=== PATIENT | male | born 1960 | race African-American/Black ===

== ENCOUNTER 2016-12-15 20:47 | Inpatient (IN) | payer MEDICAID ==
[~2016-12-15] VITALS: Ht 182.9 cm; Wt 95.5 kg
[2016-12-15 22:57] LABS: Basophils # (auto) 0 uL; Basophils % (auto) 0.1 % (0.0-2.0); CONDITION Y; Eosinophils # (auto) 0.1 uL; Eosinophils % (auto) 0.9 % (0.0-7.0); Hematocrit 42.2 % (41.0-53.0); Hemoglobin 13.8 g/dL (13.5-17.5); Lymphocytes # (auto) 1.4 uL; Mean Corpuscular Hemoglobin 28.3 pg (28.0-32.0); Mean Corpuscular Hgb Conc. 32.7 g/dL (32.0-36.0); Mean Corpuscular Volume 86.7 fL (80.0-100.0); Mean Platelet Volume 8.6 fL (7.4-10.4); Monocytes # (auto) 0.3 uL; Monocytes % (auto) 3.4 % (0.0-12.0); Neutrophils # (auto) 5.9 uL; Neutrophils % (auto) 77.6 % (37.0-80.0); Platelet Count (auto) 255 10^3/uL (140-450); Red Cell Distribution Width 15.5 % (11.6-16.0); White Blood Cell 7.7 10^3/uL (4.4-10.8)
[2016-12-15 23:15] LABS: INR 0.98 (0.9-1.15); Partial Thromboplastin Time 26.5 sec (22.64-33.71); Prothrombin Time 10.7 sec (9.37-12.3)
[2016-12-15 23:18] LABS: Albumin 3.5 g/dL (3.4-5.0); Anion Gap 6 (5-15); BUN/Creatinine Ratio 14.3; Blood Urea Nitrogen 16 mg/dL (7-18); Calcium 8.5 mg/dL (8.5-10.1); Carbon Dioxide 29 mmol/L (21-32); Chloride 108 mmol/L (98-107); GFR African American 87 mL/min; GFR Non-African American 72 mL/min; Glucose 104 mg/dL (74-106); Magnesium 2.1 mg/dL (1.6-2.6); Potassium 3.9 mmol/L (3.5-5.1); Sodium 143 mmol/L (136-145)
[2016-12-15 23:27] LABS: Alkaline Phosphatase 74 U/L (45-117); Aspartate Aminotransferase 19 U/L (15-37); B-Type Natriuretic Peptide 78.08 pg/mL (0-100); Bilirubin, Total 0.3 mg/dL (0.2-1.0); Total Protein 7.2 g/dL (6.4-8.2)
[2016-12-15 23:28] LABS: Temperature: 22.9 C (20.0-25.0)
[2016-12-16] MEDS ORDERED: IOHEXOL 350 MG/ML 100ML IJ ONE (02:58)
[2016-12-16] MEDS ORDERED: ENOXAPARIN SOD 100 MG/1 ML SYRINGE SC ONE (05:30)
[2016-12-16] MEDS ORDERED: NITROGLYCERIN 0.4 MG SL TAB SL PRN (06:15)
[2016-12-16] MEDS ORDERED: MORPHINE SULF INJ 2 MG/ML SYRINGE 1ML IV PRN (06:15)
[2016-12-16] MEDS ORDERED: TEMAZEPAM 15 MG CAP PO PRN (06:15)
[2016-12-16] MEDS ORDERED: ONDANSETRON HCL 4 MG/2 ML VIAL IV PRN (06:15)
[2016-12-16] MEDS ORDERED: ACETAMINOPHEN 325 MG TAB PO PRN (06:15)
[2016-12-16 08:00] VITALS: BP 159/100
[2016-12-16 08:07] LABS: Urine Bilirubin Negative (Negative); Urine Blood Negative /uL (Negative); Urine Color Yellow (Yellow); Urine Glucose Normal (Normal); Urine Hyaline Cast FEW /lpf (0 - 2); Urine Ketone Negative (Negative); Urine Mucus FEW (None Seen); Urine Nitrite Negative (Negative); Urine RBC 1 /hpf (0 - 3); Urine Squamous Epithelial Cell FEW /hpf (<5); Urine Urobilinogen Normal (Negative); Urine pH 5.5 (5.0-8.0)
[2016-12-16] MEDS: FAMOTIDINE 20 MG TAB PO SCH ×2 (10:35→21:30)
[2016-12-16] MEDS: HCTZ 25 MG TAB PO SCH (10:35)
[2016-12-16] MEDS: SERTRALINE HCL 50 MG TAB PO SCH (10:36)
[2016-12-16] MEDS: LISINOPRIL 5 MG TAB PO SCH (10:36)
[2016-12-16] MEDS: ASPirin 81 mg TAB PO SCH (10:36)
[2016-12-16 12:00] VITALS: BP 141/90
[2016-12-16 16:00] VITALS: BP 142/92
[2016-12-16] MEDS: HYDROcodone-ACET 5/325MG TAB PO PRN (16:50)
[2016-12-16] MEDS: ENOXAPARIN SOD 100 MG/1 ML SYRINGE SC SCH ×2 (18:19→21:30)
[2016-12-16 21:51] VITALS: BP 145/83
[2016-12-17 04:50] VITALS: BP 145/82
[2016-12-17] MEDS: HYDROcodone-ACET 5/325MG TAB PO PRN (06:00)
[2016-12-17 06:21] LABS: Basophils # (auto) 0 uL; Basophils % (auto) 0.6 % (0.0-2.0); CONDITION Y; Eosinophils # (auto) 0.1 uL; Eosinophils % (auto) 2.7 % (0.0-7.0); Hematocrit 43.1 % (41.0-53.0); Hemoglobin 14.1 g/dL (13.5-17.5); Lymphocytes # (auto) 1.9 uL; Mean Corpuscular Hemoglobin 28.3 pg (28.0-32.0); Mean Corpuscular Hgb Conc. 32.6 g/dL (32.0-36.0); Mean Corpuscular Volume 86.6 fL (80.0-100.0); Monocytes # (auto) 0.6 uL; Monocytes % (auto) 13.6 % (0.0-12.0); Neutrophils # (auto) 1.7 uL; Neutrophils % (auto) 39.1 % (37.0-80.0); Platelet Count (auto) 247 10^3/uL (140-450); Red Cell Distribution Width 15.2 % (11.6-16.0); White Blood Cell 4.3 10^3/uL (4.4-10.8)
[2016-12-17 06:26] LABS: INR 0.98 (0.9-1.15); Prothrombin Time 10.7 sec (9.37-12.3)
[2016-12-17 06:41] LABS: Potassium 3.9 mmol/L (3.5-5.1)
[2016-12-17 06:55] LABS: Albumin 3.3 g/dL (3.4-5.0); BUN/Creatinine Ratio 12.6; Bilirubin, Total 0.4 mg/dL (0.2-1.0); Calcium 8.9 mg/dL (8.5-10.1); Total Protein 7.2 g/dL (6.4-8.2)
[2016-12-17] MEDS ORDERED: LISI-285 PO (06:55)
[2016-12-17] MEDS ORDERED: METO25TA62 PO (06:55)
[2016-12-17] MEDS ORDERED: SERT-274 PO (06:55)
[2016-12-17] MEDS ORDERED: ASPI81CH43 GT (06:55)
[2016-12-17 08:45] VITALS: BP 170/103
[2016-12-17] MEDS ORDERED: APIX5TAB PO (09:52)
[2016-12-17] MEDS: ENOXAPARIN SOD 100 MG/1 ML SYRINGE SC SCH (10:30)
[2016-12-17] MEDS: FAMOTIDINE 20 MG TAB PO SCH (10:30)
[2016-12-17] MEDS: LISINOPRIL 5 MG TAB PO SCH (10:31)
[2016-12-17] MEDS: ASPirin 81 mg TAB PO SCH (10:32)
[2016-12-17] MEDS: SERTRALINE HCL 50 MG TAB PO SCH (10:32)
[2016-12-17] MEDS: HCTZ 25 MG TAB PO SCH (10:32)
[2016-12-17 12:49] VITALS: BP 143/96
== END 2016-12-17 14:00 | disposition home or self-care (01) | DRG 134 ==
LOC: EDBD 20:47 → ER 20:59 → TELE 21:00 → TELE-EAST 12-16 08:20
PROVIDERS: ADMIT Nurse Practitioner; ATTEND Hospitalist
DX: I26.99 Other pulmonary embolism without acute cor pulmonale (principal); I11.9 Hypertensive heart disease without heart failure; I51.7 Cardiomegaly; R07.89 Other chest pain; Z86.73 Personal history of transient ischemic attack (TIA), and cerebral infarction without residual deficits; Z86.718 Personal history of other venous thrombosis and embolism; Z71.89 Other specified counseling; F19.10 Other psychoactive substance abuse, uncomplicated
CPT/HCPCS: 36415; 71010; 71275; 80053; 80307; 81001; 83735; 83880; 84443; 84484; 85025; 85379; 85610; 85730; 93005; 93306; 93970; 94761; 96372